=== PATIENT | male | born 1990 | race Caucasian/White ===

== ENCOUNTER 2019-04-18 14:54 | Emergency (ER) | payer SELFPAY ==
[~2019-04-18] VITALS: Ht 177.8 cm; Wt 88.5 kg
[2019-04-18 15:06] VITALS: BP_SYST 127
--- NOTE | 2019-04-18 15:10 | NUR ---
Patient triaged and placed in waiting room. VSS and patient appears in no acute distress at this time. Accompanied by MOTHER, awaiting available bed, and MD notified of need for MSE.
[2019-04-18] MEDS ORDERED: NACL 0.9% 1,000 ML IV ONE (15:34)
--- NOTE | 2019-04-18 15:47 | NUR ---
Patient to ER bed 4 to gown for evaluation. Side rails up. Report given to CAMRYN Sinclair.
--- NOTE | 2019-04-18 15:55 | NUR ---
Pt came to ER for bilateral flank pain, stated he used heroin yesterday morning and also uses meth. C/o bilateral flank pain
--- NOTE | 2019-04-18 16:00 | NUR ---
ER at bedside examining patient.
[2019-04-18 16:22] LABS: BASOPHILS # (AUTO) 0.1 K/uL (0.0-0.2); BASOPHILS % (AUTO) 1.3 % (0.0-2.0); EOSINOPHILS # (AUTO) 0.1 K/uL (0.0-0.4); EOSINOPHILS % (AUTO) 0.7 % (0.0-4.0); HEMATOCRIT 44.3 % (36-54); HEMOGLOBIN 14.7 g/dL (14.0-18.0); LYMPHOCYTES % (AUTO) 8.9 % (20.5-51.5); MEAN CORPUSCULAR HEMOGLOBIN 28 pg (27-31); MEAN CORPUSCULAR HGB CONC 33 % (32-36); MEAN CORPUSCULAR VOLUME 86 fL (79.0-98.0); MONOCYTES # (AUTO) 0.7 K/uL (0.0-1.0); MONOCYTES % (AUTO) 5.8 % (1.7-9.3); NEUTROPHILS # (AUTO) 9.6 K/uL (1.8-7.7); NEUTROPHILS % (AUTO) 83.3 % (40.0-70.0); PLATELET COUNT (AUTO) 251 K/uL (130-430); RED BLOOD CELL COUNT(AUTO) 5.15 MIL/uL (4.2-6.2); RED CELL DISTRIBUTION WIDTH 14.4 % (9.0-15.0); WHITE BLOOD COUNT (AUTO) 11.6 K/uL (4.8-10.8)
[2019-04-18] MEDS ORDERED: NACL 0.9% 2,000 ML IV ONE (16:30)
[2019-04-18 16:34] LABS: PROTHROMBIN TIME 9.6 SECS (9.5-12.5)
[2019-04-18 16:34] LABS: BILIRUBIN,URINE NEGATIVE (NEGATIVE); BLOOD, URINE NEGATIVE (NEGATIVE); CLARITY/URINE CLEAR (CLEAR); COLOR,URINE YELLOW (YELLOW); GLUCOSE,URINE NEGATIVE (NEGATIVE); KETONES,URINE NEGATIVE (NEGATIVE); LEUKOCYTE ESTERASE ,URINE NEGATIVE (NEGATIVE); NITRITE, URINE NEGATIVE (NEGATIVE); PH,URINE 8.5 (5.0-8.0); PROTEIN URINE NEGATIVE (NEGATIVE); UROBILINOGEN,URINE 0.2 (0.2-1.0)
[2019-04-18 16:45] LABS: ALANINE AMINOTRANSFERASE 35 U/L (12-78); ALBUMIN 3.8 g/dL (3.4-4.8); ANION GAP 4 (5-15); ASPARTATE AMINOTRANSFERASE 23 U/L (10-37); CHLORIDE 104 mmol/L (98-107); GLUCOSE 83 mg/dL (70-99); LIPASE 110 U/L (73-393); POTASSIUM 4.3 mmol/L (3.5-5.1); SODIUM SERUM 138 mmol/L (136-145); TOTAL BILIRUBIN 0.4 mg/dL (0.0-1.0); UREA NITROGEN, BLOOD 14 mg/dL (8-21)
[2019-04-18 16:48] LABS: BARBITURATE, URINE NEGATIVE (NEG <=200); BENZODIAZEPINE, URINE NEGATIVE (NEG <=150); CANNABINOID, URINE NEGATIVE (NEG <=50); COCAINE, URINE NEGATIVE (NEG <=150); METHAMPHETAMINES SCREEN,URINE POSITIVE (NEG <=500); OPIATE, URINE POSITIVE (NEG <=100); PHENCYCLIDINE SCREEN,URINE NEGATIVE (NEG <=25); UR TRICYCLIC ANTIDEPRESSANTS NEGATIVE (NEG <=300); URINE AMPHETAMINE NEGATIVE (NEG <=500); URINE METHADONE NEGATIVE (NEG <=200); URINE OXYCODONE SCREEN NEGATIVE (NEG <=100); URINE PROPOXYPHENE SCREEN NEGATIVE (NEG <=300)
[2019-04-18 16:49] LABS: ALCOHOL, BLOOD < 3 mg/dL (<10); GFR AFRICAN AMERICAN 148 mL/min (>90)
[2019-04-18 17:09] LABS: ACETAMINOPHEN < 1 ug/mL (1-30)
[2019-04-18 17:35] VITALS: BP_SYST 138
--- NOTE | 2019-04-18 17:35 | NUR ---
Patient does not wish to proceed with medical care recommended by Dr. Steel. Patient given information related to possible complications, up to and including , which could occur as a result of leaving hospital at this time. Patient verbalizes understanding of risks involved leaving against medical advice. Patient has signed AMA form.
== END 2019-04-18 17:35 | disposition left against medical advice (07) ==
LOC: SED 14:54
DX: R11.2 Nausea with vomiting, unspecified (principal); R53.1 Weakness; R19.7 Diarrhea, unspecified; F11.90 Opioid use, unspecified, uncomplicated
CPT/HCPCS: 36415; 71045; 80053; 80307; 81003; 82550; 83605; 83690; 85025; 85610; 85730; 96360; 96361; 99284; G0480; G0481; G0482; J7030